=== PATIENT | female | born 1945 | race Caucasian/White ===

== ENCOUNTER 2021-04-05 13:30 | Emergency (ER) | payer MEDICARE, BC ==
[2021-04-05 13:44] VITALS: BP 150/85; PULSE 104
--- NOTE | 2021-04-05 14:15 | CT ---
[id number] CT/CT Head WO IV EXAM: CT Head WO IV CLINICAL DATA: FALL WITH HEAD LACERATION. COMPARISON STUDY: None FINDINGS: No intracranial hemorrhage, extra-axial fluid collection, mass, or acute ischemia. Generalized parenchymal atrophy with scattered areas of nonspecific white matter disease, commonly seen as sequela of chronic microvascular ischemia. Soft tissues are unremarkable. Mild mucosal thickening. No evidence of aggressive sinusitis. The mastoid air cells are well aerated and clear. IMPRESSION: No acute intracranial findings. Alek Chao DO 04/05/21 1387 Thank you for allowing us to participate in the care of your patient.
--- NOTE | 2021-04-05 14:19 | EDM.PDOC ---
ED HPI GENERAL MEDICAL PROBLEM - General Chief Complaint: Laceration Stated Complaint: HEAD LACERATION Time Seen by Provider: 04/05/21 13:45 Source of Information: Reports: Patient History Limitations: Reports: No Limitations - History of Present Illness INITIAL COMMENTS - FREE TEXT/NARRATIVE: 75 YO WF PRESENTS TO ER AFTER FALLING BACKWARD OUT OF A CHAIR AND HITTING HER HEAD. PT COMPLAINING OF A SMALL LACERATION TO THE BACK OF HER SCALP. PT REPORTS MILD HEADACHE LOCATED AROUND THE WOUND WITHOUT RADIATION. PT DENIES NECK PAIN OR BACK PAIN. PT DENIES LOSS OF CONSCIOUSNESS OR DIZZINESS. PT DENIES NAUSEA/VOMITING OR VISUAL CHANGES. PT REPORTS SHE WAS ABLE TO CONTROL THE BLEEDING WITH PRESSURE. GCS-15, ALERT AND ORIENTED X 4. PT DENIES TAKING BLOOD THINNERS. Onset: Today Location: Reports: Head Severity: Mild Improves with: Reports: None Worsens with: Reports: None Associated Symptoms: Reports: No Other Symptoms, Headaches Treatments SHIFT [employer]EM[employer]: Reports: Dressing(s) Right Posterior Headache Pain Score (Numeric/FACES): 3 - Related Data Allergies Allergy/AdvReac Type Severity Reaction Status Date / Time gluten Allergy Cannot Verified 04/05/21 13:51 Remember sulfamethoxazole Allergy Cannot Verified 04/05/21 13:51 [From Bactrim] Remember trimethoprim [From Bactrim] Allergy Cannot Verified 04/05/21 13:51 Remember Home Meds: Home Meds ALPRAZolam [Alprazolam] 0.25 mg PO ASDIRECTED PRN 04/05/21 [History] Acetaminophen/Diphenhydramine [Tylenol Pm Ex-Strength Caplet] 1 tab PO BEDTIME PRN 04/05/21 [History] Dapsone 25 mg PO BID 04/05/21 [History] Desoximetasone [Topicort 0.25% Crm] 1 applic TOP ASDIRECTED 04/05/21 [History] Escitalopram [Lexapro] 10 mg PO DAILY 04/05/21 [History] Ibuprofen 200 mg PO ASDIRECTED PRN 04/05/21 [History] Levothyroxine [Synthroid] 100 mcg PO DAILY 04/05/21 [History] Losartan [Cozaar] 25 mg PO DAILY 04/05/21 [History] Pantoprazole 20 mg PO DAILY 04/05/21 [History] Potassium Chloride 10 meq PO BID 04/05/21 [History] amLODIPine Besylate [Amlodipine Besylate] 25 mg PO DAILY 04/05/21 [History] buPROPion [buPROPion XL] 150 mg PO DAILY 04/05/21 [History] hydroCHLOROthiazide [Hydrochlorothiazide] 25 mg PO DAILY 04/05/21 [History] ED ROS GENERAL - Review of Systems Review Of Systems: See Below Constitutional: Reports: No Symptoms HEENT: Reports: No Symptoms Respiratory: Reports: No Symptoms Cardiovascular: Reports: No Symptoms Endocrine: Reports: No Symptoms GI/Abdominal: Reports: No Symptoms : Reports: No Symptoms Musculoskeletal: Reports: No Symptoms Skin: Reports: Wound (1 CM LACERATION TO OCCIPATIAL SCALP) Neurological: Reports: Headache. Denies: Dizziness Psychiatric: Reports: No Symptoms Hematologic/Lymphatic: Reports: No Symptoms Immunologic: Reports: No Symptoms ED EXAM, SKIN/RASH Exam: See Below Exam Limited By: No Limitations General Appearance: Alert, WD/WN, No Apparent Distress Eye Exam: Bilateral Eye: EOMI, PERRL Head: Normocephalic Neck: Normal Inspection, Supple, Non-Tender, Full Range of Motion Respiratory/Chest: No Respiratory Distress, Lungs Clear, Normal Breath Sounds, No Accessory Muscle Use, Chest Non-Tender Cardiovascular: Normal Peripheral Pulses, Regular Rate, Rhythm, No Edema, No Gallop, No JVD, No Murmur, No Rub GI/Abdominal: Normal Bowel Sounds, Soft, Non-Tender, No Organomegaly, No Distention, No Abnormal Bruit, No Mass Back Exam: Normal Inspection, Full Range of Motion, NT Extremities: Normal Inspection, Normal Range of Motion, Non-Tender, No Pedal Edema, Normal Capillary Refill Neurological: Alert, Oriented, CN II-XII Intact, Normal Cognition, Normal Gait, No Motor/Sensory Deficits Psychiatric: Normal Affect, Normal Mood Skin: Wound/Incision (1 CM LACERATION TO OCCIPATIAL SCALP) Location, Skin: Head Lymphatic: No Adenopathy ED SKIN PROCEDURES - Laceration/Wound Repair Posterior Head Appearance: Subcutaneous Skin Prep: Chlorhexidine (Hibiciens), Saline Exploration/Debridement/Repair: Wound Explored, In a Bloodless Field Closed with: Chidi Lac/Wound length In cm: 1 # of Sutures: 1 Sterile Dressing Applied: Nurse Tetanus Status Addressed: Yes Complications: No Course - Vital Signs Last Recorded V/S: Last Vital Signs Temp 98.7 F 04/05/21 13:40 Pulse 104 H 04/05/21 13:40 Resp 16 04/05/21 13:40 BP 150/85 H 04/05/21 13:40 Pulse Ox 95 04/05/21 13:40 - Orders/Labs/Meds Orders: Active Orders 24 hr Category Date Time Status Vaccine to be Administered/Admin Charge [RC] ASDIRECTED Care 04/05/21 14:20 Active Ibuprofen [Motrin] Med 04/05/21 14:24 Once 600 mg PO ONETIME ONE Medication Orders Ibuprofen (Ibuprofen 600 Mg Tab) 600 mg PO ONETIME ONE Stop: 04/05/21 14:25 Meds: Medications Generic Name Dose Route Start Last Admin Trade Name Freq PRN Reason Stop Dose Admin Ibuprofen 600 mg 04/05/21 14:24 Ibuprofen 600 Mg Tab PO 04/05/21 14:25 ONETIME ONE Discontinued Medications Generic Name Dose Route Start Last Admin Trade Name Freq PRN Reason Stop Dose Admin Diphtheria/Tetanus/Acell Pertussis 0.5 ml 04/05/21 14:20 Diphtheria,Pertussis(Acell),Tetanus Vaccine 0.5 Ml Syringe IM 04/05/21 14:21 .ONCE ONE - Radiology Interpretation Free Text/Narrative:: CT HEAD- NAD Departure - Departure Time of Disposition: 14:23 Disposition: Home, Self-Care 01 Condition: Good Clinical Impression: Occipital headache Laceration of head Qualifiers: Encounter type: initial encounter Location of open wound of head: scalp Foreign body presence: without foreign body Qualified Code(s): S01.01XA - Laceration without foreign body of scalp, initial encounter - Discharge Information Instructions: Head Injury, Adult, Sutures, [place], or Adhesive Wound Closure, [id number] Referrals: Lazara Reyes GUARD CHIEF [Primary Care Provider] - Forms: ED Department Discharge Additional Instructions: 1. DISCHARGE HOME 2. HEAD INJURY PRECAUTIONS GIVEN 3. RETURN TO ER FOR WORSENING SYMPTOMS 4. CALL HOSPITAL WITH ANY CONCERNS 5. FOLLOW UP WITH PCP NEEDED 6. STAPLE REMOVAL 5-7 DAYS 7. WOUND CARE INSTRUCTIONS GIVEN Sepsis Event Note (ED) - Evaluation Sepsis Screening Result: No Definite Risk - Focused Exam Vital Signs: Vital Signs Temp Pulse Resp BP Pulse Ox 04/05/21 13:40 98.7 F 104 H 16 150/85 H 95 - My Orders Last 24 Hours: My Active Orders 04/05/21 14:20 Vaccine to be Administered/Admin Charge [RC] ASDIRECTED 04/05/21 14:24 Ibuprofen [Motrin] 600 mg PO ONETIME ONE - Assessment/Plan Last 24 Hours: My Active Orders 04/05/21 14:20 Vaccine to be Administered/Admin Charge [RC] ASDIRECTED 04/05/21 14:24 Ibuprofen [Motrin] 600 mg PO ONETIME ONE Assessment:: 1. 1 CM HEAD LACERATION-REPAIRED 2. OCCIPITAL HEADACHE Plan: 1. DISCHARGE HOME 2. HEAD INJURY PRECAUTIONS GIVEN 3. RETURN TO ER FOR WORSENING SYMPTOMS 4. CALL HOSPITAL WITH ANY CONCERNS 5. FOLLOW UP WITH PCP NEEDED 6. STAPLE REMOVAL 5-7 DAYS 7. WOUND CARE INSTRUCTIONS GIVEN
[2021-04-05] MEDS: Diphtheria,Pertussis(Acell),Tetanus Vaccine 0.5 ML Syringe IM ONE (14:22)
[2021-04-05] MEDS: Ibuprofen 600 MG Tab PO ONE (14:28)
== END 2021-04-05 14:35 | disposition home or self-care (01) ==
LOC: KA.ED 13:30
DX: S01.01XA Laceration without foreign body of scalp, initial encounter (principal); Z91.018 Allergy to other foods; Z88.2 Allergy status to sulfonamides; Z23 Encounter for immunization; W07.XXXA Fall from chair, initial encounter
CPT/HCPCS: 12001; 70450; 90471; 90715; 99283-25; A9270-GY

== ENCOUNTER 2023-03-05 06:29 | Day surgery (SDC) | payer MEDICARE, BC ==
[2023-03-05] MEDS ORDERED: Sodium Chloride 0.9% 10 ML Syringe FLUSH PRN (06:30)
[2023-03-05] MEDS: Lactated Ringers 1,000 ML IV SCH (06:56)
[2023-03-05] MEDS ORDERED: Propofol 200 MG/20 ML SDV ONE (07:28)
[2023-03-05] MEDS ORDERED: Midazolam 1 MG/ML 2 ML SDV ONE (07:28)
[2023-03-05 10:22] VITALS: BP 120/73; PULSE 80
== END 2023-03-05 10:05 | disposition home or self-care (01) ==
LOC: KA.SDS 06:29
PROVIDERS: ATTEND Family Medicine
DX: D12.3 Benign neoplasm of transverse colon (principal); D12.4 Benign neoplasm of descending colon; K57.30 Diverticulosis of large intestine without perforation or abscess without bleeding; K64.4 Residual hemorrhoidal skin tags; K64.8 Other hemorrhoids; I10 Essential (primary) hypertension; E78.00 Pure hypercholesterolemia, unspecified; E89.0 Postprocedural hypothyroidism; K21.9 Gastro-esophageal reflux disease without esophagitis; E87.6 Hypokalemia; F41.1 Generalized anxiety disorder; F33.1 Major depressive disorder, recurrent, moderate; L13.0 Dermatitis herpetiformis; K90.0 Celiac disease; Z79.899 Other long term (current) drug therapy; Z79.890 Hormone replacement therapy; Z91.040 Latex allergy status; Z88.1 Allergy status to other antibiotic agents; Z88.5 Allergy status to narcotic agent; Z88.8 Allergy status to other drugs, medicaments and biological substances
CPT/HCPCS: 00812; J2250; J2704; J7120